=== PATIENT | female | born 1985 | race Caucasian/White ===

== ENCOUNTER 2022-10-18 18:31 | Emergency (ER) | payer OTHER, MEDICAID ==
[~2022-10-18 18:31] MED LIST: PNV51CAP PO; PREN1TAB79 PO
== END 2022-10-18 19:17 | disposition left against medical advice (07) ==
LOC: ER 18:32
DX: N18.9 Chronic kidney disease, unspecified (principal); Z53.21 Procedure and treatment not carried out due to patient leaving prior to being seen by health care provider